=== PATIENT | male | born 1975 | race Hispanic/Latino ===

== ENCOUNTER 2018-04-13 21:55 | Observation (INO) | payer BC ==
[~2018-04-13] VITALS: Ht 157.5 cm; Wt 115.2 kg
--- OUTSIDE RECORDS SUMMARY | 2018-04-13 21:57 | XMS REPORT ---
Author Author [facility] Address Unknown Phone Unavailable Care Team Providers Care Operational Trainer Name Role Phone ALEXIS PETERSON Unavailable Unavailable Problems This patient has no known problems. Allergies, Adverse Reactions, Alerts This patient has no known allergies or adverse reactions. Medications This patient has no known medications. Results Test Description Test Time Test Comments Text Results Atomic Results Result Comments CT ABDOMEN/PELVIS W [place] [address] Patient Name: ELLEN LOZA MR #: [id number] : 1975 Age/Sex: 42/M Req #: [id number] Adm Physician: Ordered by: ALEXIS PETERSON MD Report #: [id number] Location: CT Room/Bed: Procedure: [id number] CT/CT ABDOMEN/PELVIS W Exam Date: 09/24/17 Exam Time: 1905 REPORT STATUS: Signed EXAM: CT Abdomen and Pelvis WITH contrast INDICATION: COMPARISON: None. TECHNIQUE: Abdomen and pelvis were scanned utilizing a multidetector helical scanner from the lung base to the pubic symphysis after administration of IV contrast. Coronal and sagittal reformations were obtained. Routine protocol was performed. Scan was performed when during portal venous phase. IV CONTRAST: 100 mL of Isovue-370 ORAL CONTRAST: Gastroview COMPLICATIONS: None RADIATION DOSE: Total DLP: 810.4 mGy*cm Estimated effective dose: (DLP x 0.015 x size factor) mSv CTDIvol has been reviewed. It is below the limits set by the Radiation Protocol Committee (RPC). FINDINGS: LINES and TUBES: None. LOWER THORAX: 5 mm left lower lobe nodule (series 2, image 4). HEPATOBILIARY: No focal hepatic lesions. No biliary ductal dilation. GALLBLADDER: Surgically absent. SPLEEN: No splenomegaly. Ill-defined nonspecific subcentimeter hypodensity (series 2, image 31). PANCREAS: No focal masses or ductal dilatation. ADRENALS: No adrenal nodules KIDNEYS/URETERS: Kidneys enhance symmetrically. No hydronephrosis. No cystic or solid mass lesions. No stones. GI TRACT: No abnormal distention or evidence of bowel obstruction. Appendix is normal. Mild sigmoid and descending colon wall thickening, for example series 2, image 71. PELVIC ORGANS/BLADDER: Unremarkable. LYMPH NODES: No lymphadenopathy. VESSELS: Unremarkable. PERITONEUM / RETROPERITONEUM: No free air or fluid. BONES: Unremarkable. SOFT TISSUES: Unremarkable. IMPRESSION: 1. No evidence of diverticulosis or diverticulitis. 2. Sigmoid and to lesser extent descending colon wall thickening, which could be partially due to underdistention. Mild colitis cannot be excluded in the appropriate clinical setting. Also patient may benefit from colonoscopy to evaluate for underlying lesion. 3. 5 mm left lower lobe lung nodule. Without risk factors , no follow-up is necessary. With risk factors, follow-up with low-dose chest CT in one year is recommended. Signed by: Dr. Gerry Robertson MD on 2016 7:50 PM Dictated By: GERRY ROBERTSON MD 49 Transcribed By: KRISTIN on 09/24/171949 COPY TO: ALEXIS PETERSON MD
[2018-04-13] MEDS ORDERED: VITAMIN D400 UNIT PO (22:31)
[2018-04-13] MEDS ORDERED: ASPIRIN CHEW81 MG PO (22:31)
[2018-04-13] MEDS ORDERED: ASPIRIN 325 MG TAB PO ONE (22:45)
[2018-04-13] MEDS ORDERED: ATACAND8 MG PO (23:01)
[2018-04-14] MEDS ORDERED: SODIUM CHLORIDE FLUSH 10 ML SYR INJ PRN
[2018-04-14 01:15] VITALS: BP 146/84
[2018-04-14 02:02] VITALS: BP 127/80
[2018-04-14 04:00] VITALS: BP 142/98
[2018-04-14 07:48] VITALS: BP 161/91
[2018-04-14 08:31] LABS: CHOL/HDL RATIO 4.9 (3.9-4.7)
[2018-04-14 08:48] LABS: CREATINE KINASE MB 1.3 ng/mL (0-5.0)
[2018-04-14] MEDS: ASPIRIN 81 MG CHEW TAB PO SCH ×2 (08:54→08:55)
[2018-04-14] MEDS ORDERED: LOSARTAN POTASSIUM 25 MG TAB PO SCH (10:00)
--- NOTE | 2018-04-14 10:35 | Consultation ---
DATE OF CONSULTATION: April 14, 2018 CARDIOLOGY CONSULTATION REQUESTING PHYSICIAN: Dr. Oro REASON FOR CONSULTATION: Chest pain. HISTORY OF PRESENT ILLNESS: This is a 42-year-old man with history of hypertension, who presents with complaints of chest pain. The patient reports he has had sharp chest pain for the last year. The pain is 7/10 in severity, lasting approximately 5 minutes at a time with radiation down the left arm. There is no associated shortness of breath, nausea, or diaphoresis. The pain was initially occurring approximately once a month, but has occurred more frequently in this last week. He denies any edema, orthopnea, or PND. Of note, his older brother recently of a heart attack and he has been under significant stress since then. REVIEW OF SYSTEMS: Negative except as per HPI. PAST MEDICAL HISTORY: Hypertension. PAST SURGICAL HISTORY: Cholecystectomy. ALLERGIES: PLEASE SEE EMR. MEDICATIONS: Please see medication list. SOCIAL HISTORY: He previously smoked up to a pack a day for 4 to 5 years, but quit 6 to 7 months ago before resuming recently after his brother . He smokes marijuana daily. No alcohol. He works in [employer]. FAMILY HISTORY: Pertinent for brother who of a myocardial infarction at age of 46. PHYSICAL EXAMINATION: VITAL SIGNS: Temperature 95.7 degrees, pulse 62, respiratory rate 18, blood pressure 161/91, oxygen saturation 98%. GENERAL: Obese gentleman, in no acute distress, well developed, well nourished. HEENT: Normocephalic, atraumatic. Pupils are equal. No scleral icterus. NECK: Supple. No thyromegaly or cervical lymphadenopathy. No carotid bruits. LUNGS: Clear to auscultation bilaterally. No wheezes or crackles. CARDIOVASCULAR: Normal rate and regular rhythm. No murmur. Normal S1 and S2. ABDOMEN: Soft, nontender. EXTREMITIES: No edema. NEURO: Nonfocal exam. LABS: Troponin 0.001. Cholesterol 161, triglycerides 137, LDL 101, HDL 33. EKG, normal sinus rhythm, normal ECG. IMPRESSION: 1. Chest pain. 2. Hypertension, uncontrolled. 3. Tobacco abuse. RECOMMENDATIONS: Given patient risk factors, ischemic evaluation is warranted with treadmill nuclear stress test. Obtain echocardiogram, trend cardiac enzymes to rule out myocardial infarction. Thank you for this consult. We will continue to follow. Job#: [id number]
[2018-04-14 11:25] LABS: BASOPHILS # (AUTO) 0.1 (0.0-0.1); BASOPHILS % 0.7 % (0.0-1.0); EOSINOPHILS # (AUTO) 0.3 (0.0-0.4); EOSINOPHILS % 3.7 % (0.0-6.0); HEMATOCRIT 46.2 % (38.2-49.6); HEMOGLOBIN 15.9 g/dL (14.0-18.0); LYMPHOCYTES # (AUTO) 3.4 (1.0-3.2); LYMPHOCYTES % 38.4 % (18.0-39.1); MEAN CORPUSCULAR HEMOGLOBIN 31.2 pg (28-32); MEAN CORPUSCULAR HGB CONC 34.4 g/dL (31-35); MEAN CORPUSCULAR VOLUME 90.6 fL (81-99); MONOCYTES # (AUTO) 0.8 (0.2-0.8); MONOCYTES % 8.8 % (4.4-11.3); NEUTROPHILS # (AUTO) 4.2 (2.1-6.9); NEUTROPHILS % 48.1 % (38.7-80.0); PLATELET COUNT 156 x10e3/uL (140-360); RED CELL DISTRIBUTION WIDTH 12.1 % (11.7-14.4)
[2018-04-14 11:40] LABS: ANION GAP 10.9 mmol/L (8-16); BLOOD UREA NITROGEN 9 mg/dL (7-26); BUN/CREATININE RATIO 11 (6-25); CALCIUM 8.8 mg/dL (8.4-10.2); CARBON DIOXIDE 22 mmol/L (22-29); CHLORIDE 107 mmol/L (98-107); CREATININE, SERUM 0.81 mg/dL (0.72-1.25); EST GLOMERULAR FILTRATION RATE > 60 ML/MIN (60-); GLUCOSE 114 mg/dL (74-118); POTASSIUM 3.9 mmol/L (3.5-5.1); SODIUM 136 mmol/L (136-145)
[2018-04-14 15:54] VITALS: BP 130/69
--- NOTE | 2018-04-14 16:30 | History and Physical ---
CHIEF COMPLAINT: Chest pain. HISTORY OF PRESENT ILLNESS: Mr. Griffith is a 42-year-old male who presented to the emergency room with chest pain that has been going on for 3 days, episodic, progressively getting worse. It got worse on exertion as he walked 1 mile. His brother at the age of 46 with what was deemed as sudden cardiac . He denies any complaints of nausea, vomiting, abdominal pain. He has been diagnosed with high blood pressure; however, he stopped his medications. REVIEW OF SYSTEMS: GENERAL: Denies any fever or chills. HEAD: Denies any head trauma. ENT: Denies any earache. RESPIRATORY: Denies any shortness of breath. CVS: Patient is having chest pain. REST OF THE REVIEW OF SYSTEMS: Are negative except as in history of present illness. PAST MEDICAL HISTORY: Hypertension. PAST SURGICAL HISTORY: Cholecystectomy. FAMILY AND SOCIAL HISTORY: He smoked for a total of 7 to 8 years of his life. He smokes marijuana daily. Denies any alcohol use. He works as a clinical laboratory manager. PHYSICAL EXAM: VITAL SIGNS: Temperature 97.2, pulse of 60, blood pressure 160/91, respiratory rate of 18, O2 sat 98% on room air. SKIN: Warm and dry. HEENT: Head atraumatic, normocephalic. Pupils are reactive. NECK: Supple. CHEST: Clear to auscultation bilaterally. No wheezing. HEART: S1 and S2 audible. ABDOMEN: Soft, nontender, nondistended. EXTREMITIES: No clubbing, cyanosis or edema. NEUROLOGICALLY: Awake and alert. LABS: Patient has no labs here. They were done at the freestanding place. He had a chest x-ray done, which was negative. Creatinine 0.9, sodium 137, potassium 3.6. Cardiac markers were negative. White count of 11,000. ASSESSMENT: Mr. Griffith is a 42-year-old male, hypertensive with chest pain. PLAN: 1. Cardiology consult. 2. Stress test. 3. Start antihypertensive medication. 4. Check labs. Job#: [id number] EV
[2018-04-14 17:57] LABS: CREATINE KINASE MB 1.5 ng/mL (0-5.0)
--- NOTE | 2018-04-14 18:22 | Cardiology Report ---
DATE OF STUDY: April 14, 2018 NUCLEAR STRESS TEST PROCEDURE: Stress/rest single isotope SPECT imaging with exercise stress and gated SPECT imaging. INDICATIONS: Chest pain. PROCEDURE: The patient performed treadmill exercise using a Varun protocol, exercising for 10 minutes 59 seconds to stage 4 and completing an estimated workload of 12.8 metabolic equivalents (METs). The test was terminated due to fatigue. The heart rate was beats per minute at rest and increased to 179 beats per minute at peak exercise, which was 101% of the maximum predicted heart rate. The rest blood pressure was 139/100 and increased to 205/91 mmHg, which is a hypertensive response. The patient did not develop any symptoms other than fatigue during the procedure. The resting electrocardiogram demonstrated normal sinus rhythm with right ventricular conduction delay. There were no ST segment changes consistent with myocardial ischemia. Next, myocardial perfusion imaging was performed at rest following the injection of 11 mCi of tetrofosmin. At peak exercise, the patient was injected with 31 mCi of tetrofosmin, and exercise continued for 1 minute. Gated poststress tomographic imaging was performed. FINDINGS: 1. The overall quality of the study is good. Attenuation artefact is absent. 2. Left ventricular cavity is noted to be normal size on the rest and stress studies. 3. SPECT images demonstrate homogeneous tracer distribution throughout the myocardium. 4. Gated SPECT imaging reveals normal myocardial thickening and wall motion. The left ventricular ejection fraction was calculated to be greater than 70%. IMPRESSION: Normal clinical and electrocardiographic exercise stress test. Hypertensive response to exercise. Myocardial perfusion imaging is normal. Overall left ventricular systolic function was normal without regional wall motion abnormalities. Job#: [id number] EV cc:KAY BARONE M.D.
[2018-04-14] MEDS ORDERED: LOSARTAN POTASS25 MG (18:40)
--- NOTE | 2018-04-14 19:53 | Discharge Summary ---
FINAL DIAGNOSES 1. Musculoskeletal chest pain. 2. Hypertension. ADMISSION HISTORY AND HOSPITAL COURSE: Mr. Griffith is a 42-year-old male admitted with chest pain. The patient underwent cardiac stress test, and Dr. Marie has cleared the patient to discharge. The patient has a history of hypertension and diabetes. Medication was given. The patient will be discharged home to follow up with primary care physician as an outpatient. Follow up with cardiology. KAY BARONE MD Job#: [id number] RI
== END 2018-04-14 19:12 | disposition home or self-care (01) ==
LOC: FSED 21:55 → MED/SURG3 04-14 01:10 → ACU 04-14 11:54
PROVIDERS: ADMIT Internal Medicine; ATTEND Internal Medicine
DX: R07.89 Other chest pain (principal); I10 Essential (primary) hypertension; Z72.0 Tobacco use; E11.9 Type 2 diabetes mellitus without complications; F12.10 Cannabis abuse, uncomplicated
CPT/HCPCS: 36415; 71046; 78452; 80048; 80061; 80076; 80307; 82550; 82553; 83880; 84484; 85025; 85379; 93005; 93017; 93306; 99284; A9502; G0378

== ENCOUNTER → 2020-12-28 | Outpatient (CLI) | payer BC ==
[~2020-12-28] MED LIST: ASPIRIN CHEW81 MG PO; ATACAND8 MG PO; LOSARTAN POTASS25 MG; VITAMIN D400 UNIT PO
== END ==
LOC: RAD 10:06
PROVIDERS: ATTEND Emergency Medicine
DX: M94.0 Chondrocostal junction syndrome [Tietze] (principal); M25.572 Pain in left ankle and joints of left foot
CPT/HCPCS: 71101

== ENCOUNTER → 2021-01-30 | Outpatient (CLI) | payer BC ==
[~2021-01-30] MED LIST changes: +IOPAMIDOL 370 MG/ML 200 ML INFUS..BTL INJ ONE; +SODIUM CHLORIDE 0.9% 50ML 50 ML ONE
[2021-01-30 18:43] LABS: BLOOD UREA NITROGEN 11 mg/dL (7-26); BUN/CREATININE RATIO 12 (6-25); EST GLOMERULAR FILTRATION RATE > 60 ML/MIN (60-)
== END ==
LOC: CT 17:47
PROVIDERS: ATTEND Emergency Medicine
DX: R10.9 Unspecified abdominal pain (principal)
CPT/HCPCS: 36415; 74177; 82565; 84520; Q9967

== ENCOUNTER 2022-08-27 21:45 | Emergency (ER) | payer BC, OTHER ==
[~2022-08-27] VITALS: Ht 167.6 cm; Wt 113.4 kg
[~2022-08-27 21:45] MED LIST changes: -IOPAMIDOL 370 MG/ML 200 ML INFUS..BTL INJ ONE; -SODIUM CHLORIDE 0.9% 50ML 50 ML ONE
[2022-08-27] MEDS ORDERED: ZITHROMAX250 MG PO (22:41)
[2022-08-27 22:48] VITALS: BP 145/86
== END 2022-08-27 22:48 | disposition home or self-care (01) ==
LOC: FSED 21:56
DX: R05.9 Cough, unspecified (principal); J02.9 Acute pharyngitis, unspecified; R51.9 Headache, unspecified; I10 Essential (primary) hypertension; F17.210 Nicotine dependence, cigarettes, uncomplicated
CPT/HCPCS: 83518; 87400; 99282

== ENCOUNTER 2022-09-04 05:40 | Emergency (ER) | payer OTHER ==
[~2022-09-04] VITALS: Ht 167.6 cm; Wt 113.4 kg
[~2022-09-04 05:40] MED LIST changes: +ZITHROMAX250 MG PO
[2022-09-04] MEDS ORDERED: SODIUM CHLORIDE 0.9% 1000ML 1,000 ML IV SCH (06:45)
[2022-09-04] MEDS ORDERED: KETOROLAC TROMETHAMINE 30 MG/ML VIAL IV STA (06:45)
[2022-09-04] MEDS ORDERED: SODIUM CHLORIDE 0.9% 1000ML 1,000 ML ONE (07:01)
[2022-09-04] MEDS ORDERED: ONDANSETRON HCL INJ 2MG/ML 2ML 2 MG/ML VIAL ONE ×2 (07:01→08:19)
[2022-09-04] MEDS ORDERED: KETOROLAC TROMETHAMINE 30 MG/ML VIAL ONE (07:01)
[2022-09-04] MEDS ORDERED: IOPAMIDOL 370 MG/ML 100 ML INFUS..BTL INJ ONE (07:53)
[2022-09-04] MEDS ORDERED: ACETAMINOPHEN-1 EAC4 PO (07:55)
[2022-09-04] MEDS ORDERED: METRONIDAZOLE500 MG PO (07:55)
[2022-09-04] MEDS ORDERED: CIPRO500 MG PO (07:55)
[2022-09-04] MEDS ORDERED: ONDANSETRON ODT4 MG PO (07:55)
[2022-09-04] MEDS ORDERED: Morphine 4mg INJECTION 4 MG/ML INJ IV STA (07:57)
[2022-09-04] MEDS ORDERED: ONDANSETRON HCL INJ 2MG/ML 2ML 2 MG/ML VIAL IV STA (08:11)
[2022-09-04] MEDS ORDERED: Morphine 4mg INJECTION 4 MG/ML INJ ONE (08:20)
== END 2022-09-04 08:24 | disposition home or self-care (01) ==
LOC: FSED 06:25
DX: K57.92 Diverticulitis of intestine, part unspecified, without perforation or abscess without bleeding (principal); E66.01 Morbid (severe) obesity due to excess calories; I10 Essential (primary) hypertension; Z90.49 Acquired absence of other specified parts of digestive tract; F12.90 Cannabis use, unspecified, uncomplicated; Z68.41 Body mass index [BMI] 40.0-44.9, adult
CPT/HCPCS: 71046; 74177; 80048; 80076; 81003; 85025; 96374; 96375; 99284; J1885; J2270; J2405; J7030; Q9967